=== PATIENT | female | born 1955 | race Caucasian/White ===

== ENCOUNTER 2018-11-27 08:12 | Day surgery (SDC) | payer OTHER ==
[2018-11-20 17:12] VITALS: BMI 30.7
[2018-11-27] MEDS ORDERED: MIDAZOLAM HCL 2 MG/2 ML SINGLE DOSE VIAL ONE (10:49)
[2018-11-27] MEDS ORDERED: oxyCODONE HCL 5 MG TABLET PO PRN ×2 (11:40)
[2018-11-27] MEDS ORDERED: ONDANSETRON 4 MG/2 ML VIAL IVPUSH PRN (11:40)
[2018-11-27] MEDS ORDERED: LACTATED RINGERS SOLUTION 1,000 ML IV SCH (11:45)
[2018-11-27] MEDS ORDERED: BUPIVACAINE HCL 0.25% 125 MG/50 ML VIAL ONE (11:45)
[2018-11-27] MEDS ORDERED: ONDANSETRON 4 MG/2 ML VIAL ONE (12:47)
[2018-11-27] MEDS ORDERED: PROMETHAZINE HCL 25 MG/1 ML VIAL ONE (13:53)
[2018-11-27 14:08] VITALS: TEMP 98
[2018-11-27 17:32] VITALS: BP 111/84; PULSE 65
--- NOTE | 2018-11-28 07:16 | OP ---
DATE OF OPERATION: 11/27/2018 PREOPERATIVE DIAGNOSIS: Right knee medial meniscal tear. POSTOPERATIVE DIAGNOSIS: Right knee medial meniscal tear. PROCEDURE: Right knee arthroscopy with partial medial meniscectomy. SURGEON: Valerie oRss MD TOUCH UP CARVER: Scarlett José physician's freezer assistant ANESTHESIA: General. POSTOPERATIVE CONDITION: Stable. COMPLICATIONS: None. INDICATIONS: This is a pleasant woman who has been suffering from medial knee pain. She was found to have medial meniscal root tear. Conservative measures including therapy, medications, injections, and bracing were attempted without significant success. Operative management was discussed. Operative risks were reviewed in detail including bleeding, infection, neurovascular injury, need for further surgery, postoperative pain and stiffness, progression of osteoarthritis. We reviewed medical risks such as heart attack, stroke, DVT, PE, and . I addressed the patient 's questions and concerns. We reviewed the postoperative rehabilitation protocol. We discussed the use of antibiotic and DVT prophylaxis. We reviewed that there is a chance the patient would get no better, even worse, from this procedure and may require total knee replacement. I answered all the patient's questions and concerns. She voiced understanding and elected to proceed. DESCRIPTION OF PROCEDURE: The patient was brought to the operating room where general anesthesia was administered. The right lower extremity was prepped and draped in the usual sterile fashion. A preoperative dose of antibiotics was given, and the usual timeout procedure was performed. The portal sites were then marked out. An 11-blade was used to establish the lateral portal. The arthroscope was passed to the patellofemoral joint. Here, moderate arthrosis was noted. The arthroscope was now passed down into the notch. ACL and PCL were noted to be intact. The arthroscope was now passed to the medial compartment. Here, moderate partial-thickness cartilage loss was noted. A root tear was noted at the posterior horn of the medial meniscus with complete radial penetration. Utilizing a combination of meniscal biter and shaver, this was debrided down to a stable base. This was done through a medial portal established under spinal needle localization. The lateral compartment was now inspected, demonstrating no meniscus tears and no significant articular wear. At this point, the excess fluid was withdrawn from the joint. The portals were sutured using 3-0 nylon. Sterile dressings were placed. The patient was extubated and transferred to recovery room in stable condition. VALERIE ROSS M.D. [id number] MTDMyrna
== END 2018-11-27 16:05 | disposition home or self-care (01) ==
LOC: FASU 08:12
PROVIDERS: ATTEND Orthopaedic Surgery Sports Medicine
PROC: 0SBC4ZZ Excision of Right Knee Joint, Percutaneous Endoscopic Approach (ICD-10-PCS; principal; 2018-11-27 11:59)
DX: S83.241A Other tear of medial meniscus, current injury, right knee, initial encounter (principal); X58.XXXA Exposure to other specified factors, initial encounter; Y93.9 Activity, unspecified; Y92.9 Unspecified place or not applicable
CPT/HCPCS: 94760

== ENCOUNTER 2021-12-18 04:54 | Day surgery (SDC) | payer OTHER ==
[2021-12-13 13:10] VITALS: BMI 31.6
[2021-12-18 09:31] VITALS: TEMP 96.9
[2021-12-18 10:16] VITALS: BP 115/67; PULSE 104
== END 2021-12-18 10:28 | disposition home or self-care (01) ==
LOC: JASU-ENDO 04:54
PROVIDERS: ATTEND Internal Medicine Gastroenterology
PROC: 0DBP8ZX Excision of Rectum, Via Natural or Artificial Opening Endoscopic, Diagnostic (ICD-10-PCS; 2021-12-18)
PROC: 0DBM8ZX Excision of Descending Colon, Via Natural or Artificial Opening Endoscopic, Diagnostic (ICD-10-PCS; principal; 2021-12-18 09:00)
DX: D12.4 Benign neoplasm of descending colon (principal); K55.20 Angiodysplasia of colon without hemorrhage; E85.4 Organ-limited amyloidosis; K57.30 Diverticulosis of large intestine without perforation or abscess without bleeding; K64.8 Other hemorrhoids
CPT/HCPCS: 88305-TC